=== PATIENT | male | born 1930 | race Caucasian/White ===

== ENCOUNTER 2017-07-20 20:46 | Inpatient (IN) | payer OTHER, BC ==
[~2017-07-20] VITALS: Ht 175.3 cm; Wt 105.7 kg
[2017-07-20 21:45] LABS: HEMATOCRIT 41.6 % (38.0-50.0); HEMOGLOBIN 13.6 G/DL (12.5-16.6); MCH 31.3 PG (29.0-34.0); MCHC 32.7 G/DL (30.0-36.0); MCV 95.9 FL (86-99); PLATELET COUNT 338 K/uL (156-360); RBC DIS.WIDTH-CV 13.4 % (11.8-14.6); RBC DIS.WIDTH-SD 46.9 % (39-53); RED BLOOD COUNT 4.34 M/uL (4.00-5.50); WHITE BLOOD COUNT 10.4 K/uL (4.1-10.2)
[2017-07-20 21:56] LABS: CHLORIDE 100 mEq/L (99-109); SODIUM 138 mEq/L (136-147)
[2017-07-20 21:57] LABS: GLUCOSE 117 mg/dL (70-99)
[2017-07-20 22:01] LABS: CREATININE 1.6 mg/dL (0.6-1.3); GFR ESTIMATE (CALCULATED) 44 mL/min/ (58.99-99999)
[2017-07-20 22:02] LABS: UREA NITROGEN (BUN) 35 mg/dL (9-23)
[2017-07-20 22:08] LABS: TROP-I INTERPRETATION NEGATIVE; TROPONIN-I < 0.01 ng/mL (0.0-0.30)
[2017-07-20] MEDS ORDERED: ALBUTEROL2.5 MG/3 M IH (23:09)
[2017-07-20] MEDS ORDERED: KETOCONAZOLE60 GM TP (23:10)
[2017-07-20] MEDS ORDERED: SPIRIVA1 INHALATI IH (23:12)
[2017-07-20] MEDS ORDERED: ADVAIR HFA120 INHALA IH (23:12)
[2017-07-20] MEDS ORDERED: COZAAR50 MG PO (23:13)
[2017-07-20] MEDS ORDERED: PROTONIX20 MG PO (23:13)
[2017-07-20] MEDS ORDERED: AVODART0.5 MG PO (23:14)
[2017-07-20] MEDS ORDERED: FLOMAX0.4 MG PO (23:14)
[2017-07-20] MEDS ORDERED: LASIX20 MG PO (23:15)
[2017-07-20] MEDS ORDERED: MULTIPLE VITAM1 EAC1 PO (23:15)
[2017-07-20] MEDS ORDERED: PROBIOTIC1 EAC1 PO (23:16)
[2017-07-20] MEDS ORDERED: VOLTAREN 1% GE100 GM TP (23:16)
[2017-07-21 01:05] VITALS: BP 134/63
[2017-07-21 04:55] VITALS: BP 130/58
[2017-07-21 05:31] LABS: HEMOGLOBIN 13.4 G/DL (12.5-16.6); MCH 30.1 PG (29.0-34.0); MCHC 31.9 G/DL (30.0-36.0); MCV 94.4 FL (86-99); PLATELET COUNT 337 K/uL (156-360); RBC DIS.WIDTH-CV 13.5 % (11.8-14.6); RBC DIS.WIDTH-SD 46.9 % (39-53); RED BLOOD COUNT 4.45 M/uL (4.00-5.50); WHITE BLOOD COUNT 9.6 K/uL (4.1-10.2)
[2017-07-21 05:54] LABS: CHLORIDE 102 MEQ/L (99-109); CREATININE 1.6 MG/DL (0.6-1.3); GFR ESTIMATE (CALCULATED) 44 mL/min/ (58.99-99999); GLUCOSE 161 mg/dL (70-99); POTASSIUM 5.6 MEQ/L (3.7-5.4); SODIUM 139 MEQ/L (136-147); UREA NITROGEN (BUN) 36 mg/dL (9-23)
[2017-07-21 07:17] VITALS: BP 147/72
[2017-07-21 11:51] VITALS: BP 161/78
[2017-07-21 15:25] VITALS: BP 132/71
[2017-07-21 20:52] VITALS: BP 149/77
[2017-07-22 00:20] VITALS: BP 146/70
[2017-07-22 05:10] VITALS: BP 152/76
[2017-07-22 06:53] LABS: HEMATOCRIT 40.4 % (38.0-50.0); HEMOGLOBIN 12.8 G/DL (12.5-16.6); MCH 29.9 PG (29.0-34.0); MCHC 31.7 G/DL (30.0-36.0); MCV 94.4 FL (86-99); PLATELET COUNT 357 K/uL (156-360); RBC DIS.WIDTH-CV 13.8 % (11.8-14.6); RBC DIS.WIDTH-SD 47.8 % (39-53); RED BLOOD COUNT 4.28 M/uL (4.00-5.50); WHITE BLOOD COUNT 15.5 K/uL (4.1-10.2)
[2017-07-22 07:29] LABS: CHLORIDE 102 MEQ/L (99-109); CREATININE 1.6 MG/DL (0.6-1.3); GFR ESTIMATE (CALCULATED) 44 mL/min/ (58.99-99999); GLUCOSE 146 mg/dL (70-99); MAGNESIUM 2.1 mg/dl (1.3-2.7); POTASSIUM 4.9 MEQ/L (3.7-5.4); SODIUM 141 MEQ/L (136-147); UREA NITROGEN (BUN) 42 mg/dL (9-23)
[2017-07-22 07:46] VITALS: BP 135/69
[2017-07-22 12:54] VITALS: BP 159/87
[2017-07-22 16:26] VITALS: BP 162/83
[2017-07-22 19:20] VITALS: BP 190/86
[2017-07-23] VITALS (7 sets, daily range): BP systolic 115–155; BP diastolic 64–78
[2017-07-23 05:40] LABS: HEMATOCRIT 42.1 % (38.0-50.0); HEMOGLOBIN 13.6 G/DL (12.5-16.6); MCH 30.8 PG (29.0-34.0); MCHC 32.3 G/DL (30.0-36.0); MCV 95.2 FL (86-99); PLATELET COUNT 363 K/uL (156-360); RBC DIS.WIDTH-CV 13.9 % (11.8-14.6); RBC DIS.WIDTH-SD 48.9 % (39-53); RED BLOOD COUNT 4.42 M/uL (4.00-5.50); WHITE BLOOD COUNT 15.5 K/uL (4.1-10.2)
[2017-07-23 06:00] LABS: CHLORIDE 104 MEQ/L (99-109); CREATININE 1.5 MG/DL (0.6-1.3); GFR ESTIMATE (CALCULATED) 47 mL/min/ (58.99-99999); GLUCOSE 139 mg/dL (70-99); MAGNESIUM 2.3 mg/dl (1.3-2.7); POTASSIUM 4.5 MEQ/L (3.7-5.4); SODIUM 140 MEQ/L (136-147); UREA NITROGEN (BUN) 46 mg/dL (9-23)
[2017-07-24 04:12] VITALS: BP 133/76
[2017-07-24 05:42] LABS: BASOPHIL (%) 0.1 % (0-1); EOSINOPHIL (%) 0 % (0-5); HEMATOCRIT 41.9 % (38.0-50.0); HEMOGLOBIN 13.2 G/DL (12.5-16.6); IMMATURE GRANULOCYTE (%) 0.9 % (0.0-0.7); LYMPHOCYTE (%) 5.1 % (15-42); LYMPHOCYTE COUNT 0.7 K/uL (1.0-2.8); MCH 29.7 PG (29.0-34.0); MCHC 31.5 G/DL (30.0-36.0); MCV 94.4 FL (86-99); MONOCYTE (%) 7.8 % (3-12); MONOCYTE COUNT 1.1 K/uL (0-0.8); NEUTROPHIL (%) 86.1 % (45-76); NEUTROPHIL COUNT 11.7 K/uL (1.8-6.4); PLATELET COUNT 359 K/uL (156-360); RBC DIS.WIDTH-CV 13.8 % (11.8-14.6); RBC DIS.WIDTH-SD 47.8 % (39-53); RED BLOOD COUNT 4.44 M/uL (4.00-5.50); WHITE BLOOD COUNT 13.6 K/uL (4.1-10.2)
[2017-07-24 06:02] LABS: CHLORIDE 100 MEQ/L (99-109); CREATININE 1.6 MG/DL (0.6-1.3); GFR ESTIMATE (CALCULATED) 44 mL/min/ (58.99-99999); GLUCOSE 125 mg/dL (70-99); POTASSIUM 4.4 MEQ/L (3.7-5.4); SODIUM 137 MEQ/L (136-147); UREA NITROGEN (BUN) 50 mg/dL (9-23)
[2017-07-24 08:38] VITALS: BP 120/77
[2017-07-24 11:22] VITALS: BP 133/70
[2017-07-24 17:04] VITALS: BP 143/74
[2017-07-24 20:30] VITALS: BP 152/87
[2017-07-25] VITALS (7 sets, daily range): BP systolic 120–169; BP diastolic 70–90
[2017-07-25 05:38] LABS: BASOPHIL (%) 0.2 % (0-1); EOSINOPHIL (%) 0.2 % (0-5); HEMATOCRIT 41.4 % (38.0-50.0); HEMOGLOBIN 13.4 G/DL (12.5-16.6); LYMPHOCYTE (%) 11.9 % (15-42); LYMPHOCYTE COUNT 1.5 K/uL (1.0-2.8); MCH 30.8 PG (29.0-34.0); MCHC 32.4 G/DL (30.0-36.0); MCV 95.2 FL (86-99); MONOCYTE (%) 12.5 % (3-12); MONOCYTE COUNT 1.6 K/uL (0-0.8); NEUTROPHIL (%) 74.2 % (45-76); NEUTROPHIL COUNT 9.3 K/uL (1.8-6.4); PLATELET COUNT 330 K/uL (156-360); RBC DIS.WIDTH-SD 48.6 % (39-53); RED BLOOD COUNT 4.35 M/uL (4.00-5.50); WHITE BLOOD COUNT 12.6 K/uL (4.1-10.2)
[2017-07-25 06:30] LABS: CHLORIDE 103 MEQ/L (99-109); CREATININE 1.4 MG/DL (0.6-1.3); GFR ESTIMATE (CALCULATED) 51 mL/min/ (58.99-99999); POTASSIUM 4.7 MEQ/L (3.7-5.4); SODIUM 142 MEQ/L (136-147); UREA NITROGEN (BUN) 50 mg/dL (9-23)
[2017-07-25 06:37] LABS: GLUCOSE 81 mg/dL (70-99)
[2017-07-26 04:50] VITALS: BP 128/62
[2017-07-26 06:23] LABS: BASOPHIL (%) 0.4 % (0-1); EOSINOPHIL (%) 2.1 % (0-5); EOSINOPHIL COUNT 0.2 K/uL (0-0.3); HEMATOCRIT 42.6 % (38.0-50.0); HEMOGLOBIN 13.9 G/DL (12.5-16.6); IMMATURE GRANULOCYTE (%) 1.2 % (0.0-0.7); LYMPHOCYTE (%) 16.5 % (15-42); LYMPHOCYTE COUNT 1.8 K/uL (1.0-2.8); MCH 30.7 PG (29.0-34.0); MCHC 32.6 G/DL (30.0-36.0); MONOCYTE COUNT 1.2 K/uL (0-0.8); NEUTROPHIL (%) 68.8 % (45-76); NEUTROPHIL COUNT 7.7 K/uL (1.8-6.4); PLATELET COUNT 320 K/uL (156-360); RBC DIS.WIDTH-CV 13.8 % (11.8-14.6); RBC DIS.WIDTH-SD 47.7 % (39-53); RED BLOOD COUNT 4.53 M/uL (4.00-5.50); WHITE BLOOD COUNT 11.1 K/uL (4.1-10.2)
[2017-07-26 06:44] LABS: CHLORIDE 103 MEQ/L (99-109); CREATININE 1.2 MG/DL (0.6-1.3); GFR ESTIMATE (CALCULATED) > 59 mL/min/ (58.99-99999); GLUCOSE 79 mg/dL (70-99); POTASSIUM 4.5 MEQ/L (3.7-5.4); SODIUM 138 MEQ/L (136-147); UREA NITROGEN (BUN) 40 mg/dL (9-23)
[2017-07-26 08:17] VITALS: BP 143/72
[2017-07-26 12:33] VITALS: BP 162/81
[2017-07-26] MEDS ORDERED: AMLODIPINE BESY10 MG PO (14:14)
[2017-07-26] MEDS ORDERED: DUONEB 2.5-0.5 M3 ML AEROSOL (14:14)
[2017-07-26] MEDS ORDERED: CEFTIN500 MG PO (14:14)
[2017-07-26] MEDS ORDERED: ACIDOPHILUS LA1 EACH PO (14:15)
[2017-07-26] MEDS ORDERED: PREDNISONE20 MG PO (14:15)
== END 2017-07-26 16:45 | DRG 189 ==
LOC: EME 20:46 → EDBD 20:46 → EDOF 23:25 → 4EAST 23:25 → ENRESERV 23:26 → 4EAST 07-21 00:52
PROVIDERS: Internal Medicine
PROC: 5A09357 Assistance with Respiratory Ventilation, Less than 24 Consecutive Hours, Continuous Positive Airway Pressure (ICD-10-PCS; principal; 2017-07-24)
DX: J96.21 Acute and chronic respiratory failure with hypoxia (principal); J18.9 Pneumonia, unspecified organism; J44.0 Chronic obstructive pulmonary disease with (acute) lower respiratory infection; J44.1 Chronic obstructive pulmonary disease with (acute) exacerbation; E87.5 Hyperkalemia; R13.10 Dysphagia, unspecified; Z99.81 Dependence on supplemental oxygen; I11.0 Hypertensive heart disease with heart failure; I50.9 Heart failure, unspecified; R79.89 Other specified abnormal findings of blood chemistry; G47.33 Obstructive sleep apnea (adult) (pediatric); K21.9 Gastro-esophageal reflux disease without esophagitis; M19.90 Unspecified osteoarthritis, unspecified site; N40.0 Benign prostatic hyperplasia without lower urinary tract symptoms; Z96.653 Presence of artificial knee joint, bilateral; E66.9 Obesity, unspecified; Z68.34 Body mass index [BMI] 34.0-34.9, adult; Z87.891 Personal history of nicotine dependence
CPT/HCPCS: 71045; 74230; 80048; 82948; 83605; 83735; 83880; 84484; 85025; 85027; 87040; 87070; 87205; 92611 GN; 93005; 94010; 94640; 94640 76; 94660; 94667; 94668; 94760; 94799; 97530 GO; 97530 GP; 99202; 99281; 99285; C1753; J0360; J0456; J0696; J1644; J2930; J7040; J7512